=== PATIENT | female | born 1945 | race Caucasian/White ===

== ENCOUNTER → 2018-11-12 | Outpatient (CLI) | payer MEDICARE, OTHER | LOC: LAB 09:26 | PROVIDERS: ATTEND Urology | DX: R53.82 Chronic fatigue, unspecified (principal) | CPT/HCPCS: 36415; 82670; 83001; 84403; 84436; 84443; 84481 ==

== ENCOUNTER → 2018-12-31 | Outpatient (CLI) | payer MEDICARE, OTHER | LOC: LAB 09:04 | PROVIDERS: ATTEND Urology | DX: E03.9 Hypothyroidism, unspecified (principal); R53.82 Chronic fatigue, unspecified; N95.1 Menopausal and female climacteric states | CPT/HCPCS: 36415; 82607; 84436; 84443; 84481 ==